=== PATIENT | male | born 1990 | race Hispanic/Latino ===

== ENCOUNTER 2018-08-23 23:53 | Emergency (ER) | payer BC, OTHER ==
[2018-08-24 00:11] VITALS: RESP 18
[2018-08-24] MEDS ORDERED: Lidocaine 2% w Epi 1:200,000 Pf Inj IJ ONE (00:15)
[2018-08-24] MEDS ORDERED: Tdap Vaccine 0.5 ml Vial (10-64 yrs) IM ONE ×2 (00:19→00:24)
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
[2018-08-24] MEDS ORDERED: Lidocaine 2% w Epi 1:100,000 Inj IJ ONE (00:25)
[2018-08-24 04:23] VITALS: BP 132/77; PULSE 89; TEMP 98.4; O2SAT 99
== END 2018-08-24 02:20 | disposition home or self-care (01) ==
LOC: H.ER 23:53
DX: S01.111A Laceration without foreign body of right eyelid and periocular area, initial encounter (principal); W22.8XXA Striking against or struck by other objects, initial encounter; S09.90XA Unspecified injury of head, initial encounter; Z23 Encounter for immunization